=== PATIENT | female | born 1945 | race American Indian/Alaskan Native ===

== ENCOUNTER 2018-02-20 12:21 | Day surgery (SDC) | payer MEDICARE, MEDICAID ==
[2018-02-09 21:07] VITALS: BMI 22.5
[2018-02-20] MEDS: Dextrose 50% SYRINGE Inj (50 ml) IV STA ×2 (14:20→14:25)
[2018-02-20] MEDS ORDERED: Dextrose 50% SYRINGE Inj (50 ml) ONE (14:25)
[2018-02-20] MEDS ORDERED: cefTRIAXone IV 1 gm in Dextros 50 ML IVPB ONE (15:32)
[2018-02-20] MEDS ORDERED: Propofol 10 mg/ml Inj (20 ML) ONE (15:52)
[2018-02-20] MEDS ORDERED: HYDROmorphone 0.5 mg/0.5 ml ISec IVP PRN (16:37)
[2018-02-20] MEDS ORDERED: POLYETHYLENE GLYCOL 3350 17 GM/Dose PACKET PO PRN (21:25)
[2018-02-20] MEDS ORDERED: Aritificial Tears (15ml) OU PRN (21:25)
[2018-02-20] MEDS: (Novolin R) Insulin Human Regular 100 units/ml vial SC SCH (22:47)
[2018-02-21] MEDS: Lactated Ringer's 1,000 ML IV SCH ×2 (03:08→19:14)
[2018-02-21] MEDS: (Novolin R) Insulin Human Regular 100 units/ml vial SC SCH ×4 (07:48→21:54)
[2018-02-21] MEDS: Pantoprazole 40 mg EC Tab PO SCH (08:14)
[2018-02-21 08:18] LABS: HEMOGLOBIN 7.9 g/dL (11.0-16.0); MEAN CELL VOLUME 84.4 fL (81.0-99.0); MEAN CORPUSCULAR HEMOGLOBIN 28.2 pg (27.0-31.0); MEAN CORPUSCULAR HGB CONC 33.4 g/dL (33.0-37.0); MEAN PLATELET VOLUME 9.6 fL (7.2-11.7); RBC 2.8 Mil/uL (3.80-5.20); RED CELL DISTRIBUTION WIDTH 16.3 % (11.5-14.5); WHITE BLOOD COUNT 6.2 K/uL (4.8-10.8)
[2018-02-21 08:33] LABS: ALBUMIN 3.2 g/dL (3.5-5.0); CALCIUM 8.4 mg/dl (8.6-10.4)
[2018-02-21] MEDS: Lactobacillus Acidophilus 500 MU Cap PO SCH (09:19)
[2018-02-21] MEDS: Calcium-Vit D 250 mg-125 Units Tab UD PO SCH ×2 (09:19→17:34)
[2018-02-21] MEDS: Multiple Vitamins Tab PO SCH (09:20)
--- NOTE | 2018-02-21 17:15 | PCM.URO ---
Urology Progress Note - General General: Tolerating Diet - Subjective Abdominal Pain: No Flank Pain: No Voiding Well: No Hematuria: Yes Stone Passed: No Dsypnea: No Chest Pain: No Fever & Chills: No - Objective Lab Studies: Reviewed (hct=23 creat=1.4) Lab Results Last 24 Hours: Laboratory Results - last 24 hr 02/20/18 02/20/18 02/21/18 14:47 22:42 07:31 WBC RBC Hgb Hct MCV MCH MCHC RDW Plt Count MPV Sodium Potassium Chloride Carbon Dioxide Anion Gap BUN Creatinine Est GFR ( Amer) Est GFR (Non-Af Amer) POC Glucose (mg/dL) 146 H 265 H 117 H Random Glucose Calcium Total Bilirubin AST ALT Alkaline Phosphatase Total Protein Albumin Globulin Albumin/Globulin Ratio Blood Type Antibody Screen 02/21/18 02/21/18 02/21/18 07:59 07:59 10:22 WBC 6.2 RBC 2.80 L Hgb 7.9 L Hct 23.6 L MCV 84.4 MCH 28.2 MCHC 33.4 RDW 16.3 H Plt Count 199 MPV 9.6 Sodium 142 Potassium 4.0 Chloride 106 Carbon Dioxide 24 Anion Gap 16 BUN 13 Creatinine 1.4 H Est GFR ( Amer) 44 Est GFR (Non-Af Amer) 37 POC Glucose (mg/dL) Random Glucose 116 H Calcium 8.4 L Total Bilirubin 0.4 AST 29 ALT 27 Alkaline Phosphatase 80 Total Protein 6.3 Albumin 3.2 L Globulin 3.2 Albumin/Globulin Ratio 1.0 Blood Type O POSITIVE Antibody Screen Negative 02/21/18 11:08 WBC RBC Hgb Hct MCV MCH MCHC RDW Plt Count MPV Sodium Potassium Chloride Carbon Dioxide Anion Gap BUN Creatinine Est GFR ( Amer) Est GFR (Non-Af Amer) POC Glucose (mg/dL) 228 H Random Glucose Calcium Total Bilirubin AST ALT Alkaline Phosphatase Total Protein Albumin Globulin Albumin/Globulin Ratio Blood Type Antibody Screen Intake & Output: Intake & Output 02/20/18 02/21/18 02/21/18 18:59 06:59 18:59 Intake Total 938 957 4199 Output Total 400 200 Balance 850 50 975 Weight 148 lb Intake: IV 850 Intake, IV Amount 450 550 Right Antecubital 450 550 Oral 300 Blood Product 325 Red Blood Cells Cpd As1 325 Lr Unit [id number] Output: Urine 400 200 Urethral (Sauceda) 200 200 Other: Voiding Method Indwelling Catheter Indwelling Catheter Vital Signs: Vital Signs - 24 hr 02/20/18 02/20/18 02/20/18 17:15 17:30 17:45 Temperature Pulse Rate 74 71 71 Pulse Rate [ Apical] Respiratory 16 16 16 Rate Blood Pressure 129/58 L 129/56 L 119/50 L O2 Sat by Pulse 100 100 100 Oximetry 02/20/18 02/20/18 02/20/18 18:00 18:30 19:00 Temperature Pulse Rate 76 88 88 Pulse Rate [ Apical] Respiratory 16 21 15 Rate Blood Pressure 110/51 L 111/55 L 100/38 L O2 Sat by Pulse 100 100 100 Oximetry 02/20/18 02/20/18 02/20/18 19:30 20:00 20:30 Temperature Pulse Rate 86 91 H 87 Pulse Rate [ Apical] Respiratory 15 19 19 Rate Blood Pressure 100/41 L 109/47 L 100/48 L O2 Sat by Pulse 100 99 97 Oximetry 02/20/18 02/20/18 02/21/18 21:45 22:32 00:00 Temperature 97.8 F 98.2 F 98 F Pulse Rate 86 70 71 Pulse Rate [ Apical] Respiratory 19 20 20 Rate Blood Pressure 97/62 L 100/60 O2 Sat by Pulse 97 95 95 Oximetry 02/21/18 02/21/18 02/21/18 01:35 07:49 12:54 Temperature 98.3 F 98.8 F Pulse Rate 79 76 Pulse Rate [ 87 Apical] Respiratory 20 20 Rate Blood Pressure 99/61 L 106/65 O2 Sat by Pulse 98 Oximetry 02/21/18 02/21/18 02/21/18 12:58 13:13 13:28 Temperature 98.8 F 99.1 F 99.0 F Pulse Rate 76 79 76 Pulse Rate [ Apical] Respiratory 20 20 20 Rate Blood Pressure 103/67 109/69 115/72 O2 Sat by Pulse Oximetry 02/21/18 02/21/18 02/21/18 13:58 15:00 15:03 Temperature 99.0 F 99.1 F 98.7 F Pulse Rate 76 77 77 Pulse Rate [ Apical] Respiratory 20 20 20 Rate Blood Pressure 116/74 114/72 116/75 O2 Sat by Pulse 96 96 Oximetry 02/21/18 15:45 Temperature 98.7 F Pulse Rate 77 Pulse Rate [ Apical] Respiratory 20 Rate Blood Pressure 116/75 O2 Sat by Pulse Oximetry - Physical Exam Abdominal Exam: Soft, Non-Tender, Non-Distended (colostomy functioning well) Back: No CVA Tenderness Urinary Catheter Draining Well: Yes Urine Color: Broderick (hematuria present) Extremities: Calf Tenderness: Bilateral (no calf or thigh tenderness), Thigh Tenderness: Bilateral - Plan Catheter Care: Yes Intake & Output: Yes Additional Information: Imp: Stable p cysto, turbt. Bladder ca. P: catheter in place. Further rx to be decided - Date & Time of Note Date: 02/21/18 Time: 12:05
--- NOTE | 2018-02-21 17:24 | CON ---
DATE: HISTORY OF PRESENT ILLNESS: I know Adrienne from the shelter where she stays. She has been having some bloody urine. She was just in [facility] where they had a continuous bladder irrigation and because of the Plavix and aspirin, they could not do the biopsy. So, she has been off Plavix and aspirin, only on heparin subcu at the shelter where she lives for a week and she started. Yesterday, Dr. Hurtado the urologist did a biopsy of a bladder tumor. She is presently having hematuria. She is not on anything at this time, although restart the heparin for later, that is for atrial fibrillation. PAST MEDICAL HISTORY: She has COPD. 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 She has a neurogenic bladder, diabetes, history of anemia, blood disorders, blood transfusions, colon cancer. She has a colostomy. Arthritis, she cannot walk. If she does, she is very unsteady. She had small-bowel obstruction in the past, hematuria, urinary tract infections, seizure history, had colostomy for small-bowel obstruction, small bowel surgery, neurogenic bladder, incontinence. She is presently resting comfortably in bed. She is awake and alert, in no pain at this time. There is a Sauceda catheter in place with hematuria, status post biopsy for bladder tumor. She has never smoked. No alcohol. No drugs. Diabetes in the family. Presently, she has no vision changes or hearing changes. No sore throat. No chest pain. No shortness of breath or cough. No palpitations. No abdominal pain, nausea, vomiting, constipation, or diarrhea. There is a colostomy. Skin for the most part is intact that I can tell. I did not do a complete skin exam, lying on her back, she has a Sauceda in with IV fluids. She has left-sided weakness with colostomy. Alert, smiling, in good spirits. She is currently on Artificial Tears, Bacid, Crestor, Feosol, folic acid, vitamin, lactated Ringer's, MiraLAX, Novolin, Os-Marcio, Protonix, Pyridium, Senokot, Tylenol, Zoloft. The only blood work that she had done here was 146 sugar and 265 sugar. PHYSICAL EXAMINATION: VITAL SIGNS: She has a 98 temp, 71 pulse, 87 irregular heart rate, 100/60 blood pressure, 20 respiratory rate, 95% O2 saturation on room air. HEENT: Head is atraumatic, normocephalic. Throat is moist. NECK: Supple. HEART: Irregular rate. Normal S1, S2. LUNGS: Decreased breath sounds, but clear. ABDOMEN: Soft, morbidly obese, positive colostomy. EXTREMITIES: Left-sided weakness, trace edema. SKIN: For the most part is intact that I can tell. I did not look at her back. THYROID: Midline. No palpable appreciable lymphadenopathy. NEUROLOGICAL: Alert and oriented x3. I will be placing her back on heparin now that she is status post procedure. We will check her labs and put her on insulin coverage as per Urology. Hematuria and bladder tumor. Anish Ramos DO
[2018-02-22 01:26] VITALS: RESP 20
[2018-02-22] MEDS: (Novolin R) Insulin Human Regular 100 units/ml vial SC SCH ×3 (08:00→16:52)
[2018-02-22] MEDS: Pantoprazole 40 mg EC Tab PO SCH (08:05)
[2018-02-22 08:43] LABS: MEAN CORPUSCULAR HEMOGLOBIN 29.7 pg (27.0-31.0); MEAN CORPUSCULAR HGB CONC 34.6 g/dL (33.0-37.0); MEAN PLATELET VOLUME 9.6 fL (7.2-11.7); RBC 3.75 Mil/uL (3.80-5.20); RED CELL DISTRIBUTION WIDTH 16.1 % (11.5-14.5); WHITE BLOOD COUNT 7.7 K/uL (4.8-10.8)
[2018-02-22 08:54] LABS: HEMOGLOBIN 11.2 g/dL (11.0-16.0)
[2018-02-22 08:58] LABS: ALB/GLOB RATIO 1.1 (1.0-2.1); ALBUMIN 3.6 g/dL (3.5-5.0)
[2018-02-22] MEDS ORDERED: Sodium Chloride 0.45% 1,000 ML IV SCH (09:00)
[2018-02-22] MEDS: Calcium-Vit D 250 mg-125 Units Tab UD PO SCH ×2 (09:20→17:07)
[2018-02-22] MEDS: Lactobacillus Acidophilus 500 MU Cap PO SCH (09:20)
[2018-02-22] MEDS: Multiple Vitamins Tab PO SCH (09:20)
[2018-02-22 12:20] VITALS: O2SAT 95
--- NOTE | 2018-02-22 12:42 | PN ---
DATE: SUBJECTIVE: I saw Adrienne resting comfortably in bed. The Sauceda catheter is out. Dr. Hurtado removed it. There was blood in her Depends, in the towel, in the urine. She is on polyethelene glycol acid, Crestor, dextrose, Feosol, folic acid, heparin, multivitamin, lactated Ringer's. I will discontinue the lactated Ringer's and we will keep her on the dextrose for now. She is on Lasix, which is stopped, MiraLAX, Novolin. If she is on Novolin I will also stop the dextrose and put her on when it is normal. Protonix, Pyridium, Senokot, Tylenol, and Zoloft. PHYSICAL EXAMINATION: GENERAL: She is alert, comfortable in bed, no complaints, no pain. VITAL SIGNS: She has 98.5 temp, 72 pulse, 104/60 blood pressure, 20 respiratory rate, 97% O2 saturation on room air. HEENT: Head is atraumatic and normocephalic. HEART: Regular rate. LUNGS: Decreased breath sounds, but clear. ABDOMEN: Soft, morbidly obese, nontender. EXTREMITIES: No edema. GENITOURINARY: Still urinating blood. LABORATORY DATA: Lab pending this morning. Her last blood sugar was 121. I did transfuse her for 7.9 hemoglobin, waiting for this morning's labs that were just drawn late as per Dr. Hurtado. We will continue checking her labs. Catheter is out, but there is blood in the diaper. She is status post bladder tumor biopsy as per Dr. Hurtado. Anish Ramos DO MTDD
--- NOTE | 2018-02-22 17:09 | CP.PCM.PN ---
Subjective - Date & Time of Evaluation Date of Evaluation: 02/22/18 Time of Evaluation: 11:00 - Subjective Subjective: Alert, awake, no sob, or distress. Objective - Vital Signs/Intake and Output Vital Signs (last 24 hours): Temp Pulse Resp BP Pulse Ox 97.4 F L 63 20 111/60 95 02/22/18 07:05 02/22/18 07:05 02/22/18 07:05 02/22/18 07:05 02/22/18 07:05 Intake and Output: 02/22/18 02/22/18 06:59 18:59 Intake Total 2004 900 Output Total 1000 Balance 1005 900 - Medications Medications: Current Medications Acetaminophen (Tylenol 325mg Tab) 650 mg PO Q4 PRN PRN Reason: Pain, Mild (1-3) Last Admin: 02/20/18 22:52 Dose: 650 mg Artificial Tears (Artificial Tears) 0 ml OU BID PRN PRN Reason: Dry eyes Calcium/Vitamin D (Oscal-D 250 Mg-125 Units Tab) 1 tab PO BID [facility] Last Admin: 02/22/18 09:20 Dose: 1 tab Ferrous Sulfate (Feosol) 325 mg PO BID [facility] Last Admin: 02/22/18 09:20 Dose: 325 mg Folic Acid (Folic Acid) 1 mg PO DAILY [facility] Last Admin: 02/22/18 09:21 Dose: 1 mg Heparin Sodium (Porcine) (Heparin) 5,000 units SC Q12 [facility] Last Admin: 02/21/18 10:32 Dose: Not Given Sodium Chloride (Sodium Chloride 0.45%) 1,000 mls @ 40 mls/hr IV .Q24H [facility] Last Admin: 02/22/18 09:22 Dose: 40 mls/hr Insulin Human Regular (Novolin R) 0 unit SC ACHS [facility] PRN Reason: Protocol Last Admin: 02/22/18 16:52 Dose: Not Given Lactobacillus Acidophilus (Bacid Acidophilus) 1 cap PO DAILY [facility] Last Admin: 02/22/18 09:20 Dose: 1 cap Multivitamins (Hexavitamin) 1 tab PO DAILY [facility] Last Admin: 02/22/18 09:20 Dose: 1 tab Pantoprazole Sodium (Protonix Ec Tab) 40 mg PO ACB [facility] Last Admin: 02/22/18 08:05 Dose: 40 mg Phenazopyridine HCl (Pyridium) 200 mg PO Q12 [facility] Last Admin: 02/22/18 09:21 Dose: 200 mg Polyethylene Glycol (Miralax) 17 gm PO DAILY PRN PRN Reason: Constipation Rosuvastatin Calcium (Crestor) 20 mg PO HS [facility] Last Admin: 02/21/18 21:27 Dose: 20 mg Sennosides (Senokot Tab) 17.2 mg PO DAILY [facility] Last Admin: 02/22/18 09:20 Dose: 17.2 mg Sertraline HCl (Zoloft) 25 mg PO DAILY [facility] Last Admin: 02/22/18 09:20 Dose: 25 mg - Labs Labs: 02/22/18 08:33 02/22/18 08:33 Assessment and Plan - Assessment and Plan (Free Text) Assessment: 73 Year old female from the detention , post cystoscopy by DR Hurtado in stable condition. Awake, alert, voiding, no blood noted. S/P CVA with left sided weakness, no acute distress. Plan to discharge back to detention, will be followed up by DR Ramos. 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
[2018-02-22 17:22] VITALS: BP 124/70; PULSE 67; TEMP 98.5
--- NOTE | 2018-03-13 05:54 | HP ---
REASON FOR ADMISSION: Treatment of bladder cancer. HISTORY OF PRESENT ILLNESS: Ms. Flynn is a very pleasant lady, I met through the office and the hospital. She has gross hematuria, multiple medical issues. She is being brought in today for TURBT. She has a history of colon cancer and she has a bladder mass and had gross hematuria. She was brought in today for a stage I of TURBT with a plan that once we make the diagnosis find out if it is muscle invasive for further resection. The patient has multiple medical issues. Most likely, she is not a really a great candidate for cystectomy either way, but we would like to make tissue evaluation. PAST MEDICAL AND SURGICAL HISTORY: As listed, the patient of Dr. Anish Ramos. SOCIAL HISTORY: She lives in a [place] [facility], but comes to the office with her , has two children. for almost 40 years. PHYSICAL EXAMINATION: GENERAL: A well-nourished female in no apparent distress. VITAL SIGNS: Noted. NECK: No cervical or axillary lymphadenopathy. LUNGS: Clear. HEART: Normal S1, S2. ABDOMEN: Overall soft. Scars are well healed. RECTAL: The colostomy is noted. : Remainder of the exam cystocele is noted, but no direct pelvic or masses in the bladder does not appear to be fixed. DIAGNOSES: Gross hematuria, bladder mass. The patient is here for transurethral resection of bladder (tumor). PLAN: As follows: 1. Antibiotic prophylaxis. 2. Most likely resection. Again, this is mostly to make tissue diagnosis see if it is muscle invasive and then make further plans. Depending on what we find clinically. ADDENDUM: See the operative report. We did do a TURBT, but we were not able to completely resect. Just of note, the tumor is over the orifice in that area. I discussed with the patient about possibility of stenting although I am unlikely to be able to find the UO. For further plans will follow, but today, the patient underwent a TURBT and actually is going to be monitored, admitted. Just also wanted to note we are going to keep the patient off the Plavix, but keep her on the aspirin. Tyson Hurtado MD [facility] # [id number]
--- NOTE | 2018-03-13 06:48 | OP ---
PROCEDURE DATE: 02/20/2018 PREOPERATIVE DIAGNOSES: Bladder cancer, hematuria, and voiding dysfunction with gross hematuria and clots. POSTOPERATIVE DIAGNOSES: Bladder cancer, hematuria, and voiding dysfunction with gross hematuria and clots. Bladder cancer. PROCEDURES: Cystoscopy, evacuation of a ton of clots, and transurethral resection of the prostate and the bladder. bladder tumor. SURGEON: Tyson Hurtado MD COMPLICATIONS: There were no complications. BLOOD LOSS: Less than 25 mL. SPECIMEN: Multiple bladder tumors. at the termination of the procedure, the patient is not tumor free still visible lesions there. The attention today was mostly getting a tissue diagnosis. INDICATIONS: See history and physical for further details. A very pleasant lady who comes to the office. She has the bladder tumor noted masses on previous imaging. She has gross hematuria. She has history of colon cancer treated surgically alone. She does not recall getting chemotherapy or radiation therapy. She in this regard. She presents now with gross hematuria and a bladder mass and she is here for resection. We discussed options on locations, etc. DESCRIPTION OF PROCEDURE: The patient was brought to the OR and placed on the table. Routine monitors were placed. Time-out was called. We confirmed the patient positioning. We scope and then irrigated out a ton of clots. We then proceeded and focused on resecting the tumor, it is pretty much on the right side more. somewhat difficult to see visually. I do not see the orifices. We bleeding. We took out the specimen to the lab for pathologic evaluation. Again, it is difficult to even tell . Again, there was a good amount of blood . Overall, the patient tolerated well without complications. Sauceda catheter was inserted via urethra without difficulty. I want to mention that the pelvic exam shows a moderate cystocele. No other masses. The bladder itself is nicely mobile. The patient tolerated the procedure without complication. ADDENDUM The patient will be admitted and observed. We will wait for the final pathology and make further recommendation. Tyson Hurtado MD
== END 2018-02-22 18:00 ==
LOC: C.3T 12:21 → C.SDS 12:21 → C.3T 18:52 → UNDOADMIN 18:52 → C.SDS 02-22 18:00
PROVIDERS: ATTEND Urology
DX: D49.4 Neoplasm of unspecified behavior of bladder (principal); R31.9 Hematuria, unspecified; N32.89 Other specified disorders of bladder; I48.91 Unspecified atrial fibrillation; J44.9 Chronic obstructive pulmonary disease, unspecified; I69.354 Hemiplegia and hemiparesis following cerebral infarction affecting left non-dominant side; N31.9 Neuromuscular dysfunction of bladder, unspecified; Z85.038 Personal history of other malignant neoplasm of large intestine; E11.9 Type 2 diabetes mellitus without complications; D64.9 Anemia, unspecified; Z93.3 Colostomy status; M19.90 Unspecified osteoarthritis, unspecified site; Z87.440 Personal history of urinary (tract) infections
CPT/HCPCS: 36415; 36430; 52500; 80053; 82948; 85027; 86850; 86900; 86905; 86920; 86922; 88305; 88342; 97162; 97530; G8978; G8979; J0696; J1940; J7030; J7120; P9051

== ENCOUNTER 2019-02-18 12:13 | Outpatient (CLI) | payer MEDICARE, MEDICAID | END 2019-02-18 12:14 | disposition home or self-care (01) | LOC: C.MRIC 12:13 | DX: I69.351 Hemiplegia and hemiparesis following cerebral infarction affecting right dominant side (principal) ==